=== PATIENT | male | born 1970 | race American Indian/Alaskan Native ===

== ENCOUNTER 2021-05-27 16:56 | Emergency (ER) | payer BC ==
[2021-05-27] MEDS ORDERED: PHENYLEPHRINE 1 MG, SODIUM CHLORIDE P/F VIAL 10 ML 9.9 ML IJ**NOT IV ONE (17:44)
[2021-05-27] MEDS ORDERED: LIDOCAINE (1%) 10 MG/1 ML VIAL 20 ML MDV INFILTRATI ONE (17:55)
--- NOTE | 2021-05-27 18:33 | Emergency Department Report ---
HPI - General Chief Complaint: Urogenital-Male Time Seen by Provider: 05/27/21 17:05 - HPI HPI: Room 1 The patient is a 50-year-old male present with a chief complaint of priapism. The patient states he injected himself with Trimix this morning at 01:30 just prior to intercourse. Patient states his erection remained this morning when he went to work. The patient states he completed his workday with priapism and once he got off came to the emergency department. ED Past Medical Hx - Past Medical History Hx Diabetes: Yes - Surgical History Past Surgical History?: No - Family History Family history: no significant - Social History Smoking Status: Never Smoker Substance Use Type: None - Medications Home Medications: Home Medications Medication Instructions Recorded Confirmed Last Taken Type HYDROcodone/APAP 5-325 [[place] 1 - 2 each PO Q6HR PRN #7 tablet 05/27/21 Unknown Rx 5/325] ED Review of Systems ROS: Stated complaint: PENI Other details as noted in HPI Constitutional: no symptoms reported Eyes: denies: eye pain ENT: denies: throat pain Respiratory: no symptoms reported Cardiovascular: denies: chest pain Endocrine: no symptoms reported Genitourinary: other (Priapism/penile pain) Neurological: denies: headache Physical Exam - Physical Exam Vital Signs: Vital Signs 05/27/21 17:03 Temperature 98.6 F Pulse Rate 118 H Respiratory 18 Rate Blood Pressure 161/113 O2 Sat by Pulse 98 Oximetry Physical Exam: GENERAL: The patient is well-developed well-nourished male lying on stretcher not appearing to be in acute distress. [] HEENT: Normocephalic. Atraumatic. Extraocular motions are intact. Patient has moist mucous membranes. NECK: Supple. Trachea midline CHEST/LUNGS: There is no respiratory distress noted. SKIN: There is no rash. There is no edema. There is no diaphoresis. NEURO: The patient is awake, alert, and oriented. The patient is cooperative. The patient has no focal neurologic deficits. The patient has normal speech. GCS 15 MUSCULOSKELETAL: There is no evidence of acute injury. GENITOURINARY: Priapism present ED Course Vital Signs 05/27/21 17:03 Temperature 98.6 F Pulse Rate 118 H Respiratory 18 Rate Blood Pressure 161/113 O2 Sat by Pulse 98 Oximetry - Penile Procedure Consent Obtained: verbal consent Time Out Performed: Yes Indication: priapism management Procedural Sedation: No Sedation/Analgesia: none Local Anesthesia Used: Lidocaine 1% without EPI Amount of Anesthesia Used (mls): 4 Priapism Management: aspiration, phenylephrine injection Complications: none Patient Tolerated Procedure: no complications Additional Comments: Approximate 162 mL of blood aspirated and 200 mcg of phenylephrine injected to achieve detumescence ED Medical Decision Making - Differential Diagnosis Priapism Critical care attestation.: If time is entered above; I have spent that time in minutes in the direct care of this critically ill patient, excluding procedure time. ED Disposition Clinical Impression: Priapism Disposition: 01 HOME / SELF CARE / HOMELESS Is pt being admited?: No Does the pt Need Aspirin: No Condition: Stable Instructions: Priapism Additional Instructions: Return to the emergency department should you develop worsening symptoms, inability to tolerate food or liquids, high fever or any other concerns Prescriptions: HYDROcodone/APAP 5-325 [[place] 5/325] 1 - 2 each PO Q6HR PRN #7 tablet PRN Reason: Pain Referrals: [facility] urologist, [facility] [Other] - REUBEN Time of Disposition: 18:35
[2021-05-27 19:27] VITALS: BP 127/88
== END 2021-05-27 19:34 | disposition home or self-care (01) ==
LOC: ED 16:56
DX: N48.30 Priapism, unspecified (principal); E11.8 Type 2 diabetes mellitus with unspecified complications
CPT/HCPCS: 54220; 96374; 99282; J3490